=== PATIENT | female | born 1995 | race Caucasian/White ===

== ENCOUNTER 2016-10-03 18:27 | Emergency (ER) | payer OTHER ==
[2016-10-03 18:31] VITALS: RESP 16; TEMP 98.2
[2016-10-03] MEDS ORDERED: HYDROCODONE/APAP 5/325 TAB PO ONE (18:45)
--- NOTE | 2016-10-03 19:00 | DX ---
Right Hand, 3 Views Clinical Indications: Pain. Fall. Findings: No fracture or dislocation. Joint spaces have normal thickness. There are no erosions an d no periosteal reaction. No radiopaque foreign body. Impression: Normal.
--- NOTE | 2016-10-03 19:19 | EDPHY ---
H & P Time Seen by Provider: 10/03/16 18:41 HPI/ROS: CHIEF COMPLAINT: right hand pain HISTORY OF PRESENT ILLNESS: Patient is a 20-year-old female who presents emergency department after falling. She landed on outstretched hand. She now has moderate pain over the right greater thenar eminence. It does not radiate. There is no finger injury or wrist injury. She denies other injury in the fall. REVIEW OF SYSTEMS: Negative Past Medical/Surgical History: Negative Past surgical history: Negative Smoking Status: Never smoked Physical Exam: Vitals noted General Appearance: Alert and no distress. Head: Pupils equal. Normal. Respiratory: No respiratory distress. Cardiac: regular rate and rhythm. Extremities: Tenderness to palpation over the greater thenar eminence. There is mild ecchymosis. No deformity. No finger or wrist tenderness palpation. Form is atraumatic. Elbow is nontender. Skin: No rashes or lesions. Neuro: Alert. Normal mood and affect. Constitutional: Initial Vital Signs Temperature (C) 36.8 C 10/03/16 18:28 Heart Rate 82 10/03/16 18:28 Respiratory Rate 16 10/03/16 18:28 Blood Pressure 104/69 10/03/16 18:28 O2 Sat (%) 97 10/03/16 18:28 O2 Delivery Mode Room Air Allergies/Adverse Reactions: No Known Allergies Allergy (Unverified 10/03/16 18:31) Medical Decision Making ED Course/Re-evaluation: In the emergency department I discussed possible etiologies with the patient. She consented to an x-ray. Right hand x-ray: No acute disease noted. Please refer the dictated report. I personally reviewed the images. I discussed the result with the patient. I answered all her questions. She was given Velcro thumb spica splint for comfort Differential Diagnosis: My differential includes but is not limited to fracture, dislocation, contusion , sprain - Data Points Medications Given: Discontinued Medications Acetaminophen/Hydrocodone Bitart ([place] 5/325) 1 tab PO EDNOW ONE Stop: 10/03/16 18:46 Last Admin: 10/03/16 18:54 Dose: 1 tab Departure - Departure Disposition: Home, Routine, Self-Care Clinical Impression: Contusion of right hand Qualifiers: Encounter type: initial encounter Qualifier Code: (S60.221A) Contusion of right hand, initial encounter Condition: Good Instructions: Contusion in Adults (ED) Additional Instructions: Your x-ray was negative. Return with increasing pain or numbness. Use your splint for comfort. Use Tylenol and Motrin for pain control. Use ice for the next 2 days. Referrals: Roger Benavides MD [Medical Doctor] - 5-7 days, if not improved
[2016-10-03 19:29] VITALS: BP 108/72; PULSE 74; O2SAT 95
== END 2016-10-03 19:29 | disposition home or self-care (01) ==
DX: S60.221A Contusion of right hand, initial encounter (principal); W18.39XA Other fall on same level, initial encounter
CPT/HCPCS: L3807